=== PATIENT | female | born 1975 | race Caucasian/White ===

== ENCOUNTER 2016-12-31 09:22 | Emergency (ER) | payer SELFPAY ==
[2016-12-31] MEDS ORDERED: AMOXicillin 250 MG CAP ONE (10:10)
[2016-12-31] MEDS ORDERED: Ketorolac Tromethamine 30 MG/ML VIAL ONE (10:10)
== END 2016-12-31 10:20 | disposition home or self-care (01) ==
LOC: MADERS 09:22
DX: K04.7 Periapical abscess without sinus (principal); F17.210 Nicotine dependence, cigarettes, uncomplicated
CPT/HCPCS: 96372; J1885